=== PATIENT | male | born 1990 | race Hispanic/Latino ===

== ENCOUNTER 2019-01-14 21:33 | Emergency (ER) | payer OTHER ==
[2019-01-14] MEDS ORDERED: ONDANSETRON HCL 4 MG/2 ML VIAL ONE (22:22)
[2019-01-14] MEDS ORDERED: MECLIZINE HCL 25 MG TABLET ONE (22:22)
== END 2019-01-14 23:48 | disposition home or self-care (01) ==
LOC: EDH 21:33
DX: H81.399 Other peripheral vertigo, unspecified ear (principal); R09.81 Nasal congestion
CPT/HCPCS: 93005; 96361; 96374; 99284; J2405